=== PATIENT | male | born 1975 | race Caucasian/White ===

== ENCOUNTER → 2021-03-25 | Outpatient (CLI) | payer OTHER ==
--- NOTE | 2021-03-25 13:37 | REP ---
INDICATION: PAIN IN RIGHT FOOT. COMPARISON: None. TECHNIQUE: Four views of the right foot are provided. FINDINGS: Four views of the right foot demonstrate overall normal mineralization. There is osteoarthritic spurring at the 1st MTP joint. An os naviculare is seen. Bones, joints and soft tissues are otherwise unremarkable. No fracture or subluxation is seen. No opaque foreign body noted. IMPRESSION: Mild osteoarthritic fragmented spurring at the 1st MTP joint. Otherwise negative right foot radiographs. <Electronically signed by Lisandro Estrada > 03/25/21 [id number]
== END ==
LOC: M PLAIMG 11:33
PROVIDERS: ATTEND Nurse Practitioner Family
DX: M79.671 Pain in right foot (principal); M19.071 Primary osteoarthritis, right ankle and foot

== ENCOUNTER → 2021-03-26 | Outpatient (CLI) | payer OTHER ==
[2021-03-26 17:40] LABS: ALBUMIN 4.2 GM/DL (3.2-5.2); ALT/SGPT 26 U/L (12-78); BILIRUBIN,TOTAL 0.6 MG/DL (0.2-1.0); BLOOD UREA NITROGEN 12 MG/DL (7-18); CALCIUM LEVEL 9.4 MG/DL (8.5-10.1); CARBON DIOXIDE LEVEL 31 MEQ/L (21-32); CHLORIDE LEVEL 107 MEQ/L (98-107); CHOLESTEROL LEVEL 230 MG/DL (<200); CHOLESTEROL RISK RATIO 2.875 (<5); CREATININE FOR GFR 0.77 MG/DL (0.70-1.30); GLOMERULAR FILTRATION RATE > 60.0 (>60); GLUCOSE, FASTING 74 MG/DL (70-100); HDL CHOLESTEROL 80 MG/DL (>40); LDL CHOLESTEROL 142 MG/DL (<100); NON-HDL-C 150 MG/DL; POTASSIUM SERUM 4.4 MEQ/L (3.5-5.1); SODIUM LEVEL 139 MEQ/L (136-145); TOTAL PROTEIN 6.8 GM/DL (6.4-8.2); TRIGLYCERIDES LEVEL 41 MG/DL (<150)
== END ==
LOC: M PLALAB 13:57
PROVIDERS: ATTEND Nurse Practitioner Family
DX: I10 Essential (primary) hypertension (principal)